=== PATIENT | male | born 1990 ===

== ENCOUNTER 2018-05-15 05:24 | Emergency (ER) | payer SELFPAY ==
--- NOTE | 2018-05-15 06:11 | C.PDOC ---
History Of Present Illness 28 y/o male c/o cough, fever, chills, headache, sore throat x 3 days. daughter has flu. no neck stiffness. pt taking occasional tylenol at home. HPI: Influenza Time Seen by Provider: 05/15/18 05:57 Chief Complaint: Flu-like Symptoms History Per: Patient Exam Limitations: no limitations Onset/Duration Of Symptoms: Days (3), Sudden Onset Symptoms include: fever, bodyaches, sore throat, cough Sick Contacts (Context): Family Member(s) Hx Influenza Vaccination: No Risk factors for flu complications: No: adult > 65 years, chronic lung disease, heart disease, renal disease Past Medical History Reviewed: Historical Data, Nursing Documentation, Vital Signs Vital Signs: Last Vital Signs Temp 103.1 F H 05/15/18 05:45 Pulse 119 H 05/15/18 05:43 Resp 24 05/15/18 05:43 BP 109/67 05/15/18 05:43 Pulse Ox 97 05/15/18 05:43 - Medical History PMH: No Chronic Diseases Denies: End Stage Renal Disease, Chronic Kidney Disease Surgical History: No Surg Hx Family History: States: Unknown Family Hx - Social History Hx Alcohol Use: Yes Hx Substance Use: No - Immunization History Hx Tetanus Toxoid Vaccination: No Hx Influenza Vaccination: No Hx Pneumococcal Vaccination: No Review Of Systems Constitutional: Positive for: Fever, Chills ENT: Positive for: Throat Pain Respiratory: Positive for: Cough. Negative for: Shortness of Breath Gastrointestinal: Negative for: Nausea, Vomiting, Diarrhea Musculoskeletal: Negative for: Other (neck stiffness ) Neurological: Positive for: Headache Physical Exam - Physical Exam Appears: Non-toxic, Other (uncomfortable ) Skin: Normal Color, Warm, Dry Head: Atraumatic, Normacephalic Eye(s): bilateral: Normal Inspection Ear(s): Bilateral: Normal Nose: Normal, No Discharge Oral Mucosa: Moist Throat: Erythema (mild), No Exudate Neck: Supple Lymphatic: Adenopathy Chest: Symmetrical, No Deformity, No Tenderness Cardiovascular: Rhythm Regular, No Murmur Respiratory: Normal Breath Sounds, No Rales, No Rhonchi, No Wheezing, Other (persistent cough noted ) Gastrointestinal/Abdominal: Soft, No Tenderness, No Guarding, No Rebound Extremity: Normal ROM, Capillary Refill (less than 2 seconds ) Neurological/Psych: Oriented x3, Normal Speech, Normal Cognition Medical Decision Making Medical Decision Making: pt with 3 days flu like symptoms, start on tamiflu., f/u clinic - ECG O2 Sat by Pulse Oximetry: 97 Disposition Counseled Patient/Family Regarding: Studies Performed, Diagnosis, Need For Followup, Rx Given - Disposition Referrals: [facility] [Outside] Disposition: HOME/ ROUTINE Disposition Time: 06:34 Condition: IMPROVED Additional Instructions: Beber lquidos en exceso, t con miel y limn, agua. [place] Tamiflu (oseltamivir) 2 veces al da hasta que termine. Tylenol o Motrin para el dolor o la fiebre. Robitussin DM para la tos. Mayor reposo en cama. Lvese las rosa con frecuencia y trate de no extenderse al santana de la [place]. Seguimiento en clnica. Regrese a la kurt de emergencias por sntomas peores. Drink increased fluids- tea with honey and lemon, water. Take Tamiflu (oseltamivir) 2 times a day until done. Tylenol or Motrin for pain or fever. Robitussin DM for cough. Increased bed rest. Wash hands often and try not tp spread to rest of family. Follow up in clinic. Return to ER for worse symptoms. Prescriptions: Oseltamivir Phosphate [Tamiflu] 75 mg PO BID #10 capsule Instructions: Flu, Adult (DC) Forms: Gen Discharge Inst Ukrainian, [employer] (Ukrainian) Print Language: TURKISH - Clinical Impression Clinical Impression: Influenza - PA / COPS / Resident Statement MD/DO has reviewed & agrees with the documentation as recorded. - Scribe Statement The provider has reviewed the documentation as recorded by the Scribe (Cass Christensen) All medical record entries made by the Scribe were at my direction and personally dictated by me. I have reviewed the chart and agree that the record accurately reflects my personal performance of the history, physical exam, medical decision making, and the department course for this patient. I have also personally directed, reviewed, and agree with the discharge instructions and disposition.
[2018-05-15 06:31] VITALS: BP 112/70; PULSE 103; RESP 16; TEMP 98.7
[2018-05-15 06:38] VITALS: O2SAT 97
== END 2018-05-15 07:02 | disposition home or self-care (01) ==
LOC: C.ER 05:24
DX: J11.1 Influenza due to unidentified influenza virus with other respiratory manifestations (principal)